=== PATIENT | female | born 1995 | race African-American/Black ===

== ENCOUNTER 2021-09-16 17:34 | Emergency (ER) | payer OTHER ==
[2021-09-16 17:47] VITALS: TEMP 98.6; BMI 22.8
[2021-09-16 20:17] LABS: BASO % 0.3 % (0-2.0); EOS % 0.6 % (0-4.5); HEMATOCRIT 33.4 % (32.4-45.2); HEMOGLOBIN 11.4 GM/dL (10.7-15.3); LYMPH % 30.8 % (8-40); MCH 30.6 pg (25.7-33.7); MCHC 34.1 g/dl (32.0-36.0); MEAN CELL VOLUME 89.9 fl (80-96); MEAN PLT VOLUME 8.5 fl (7.5-11.1); MONO % 6.5 % (3.8-10.2); NEUT % 61.8 % (42.8-82.8); PLATELET COUNT 239 10^3/uL (134-434); RBC 3.71 M/mm3 (3.60-5.2); RDW 13.5 % (11.6-15.6); WHITE BLOOD COUNT 10.2 K/mm3 (4.0-10.0)
[2021-09-16 20:21] LABS: INR 1.34 (0.83-1.09); PROTHROMBIN TIME (PATIENT) 15.5 SEC (9.7-13.0)
[2021-09-16 20:24] LABS: ACTIVATED PTT 31.1 SECONDS (25.2-36.5)
[2021-09-16 22:03] LABS: EPI CELLS 24 /uL (0-25.1); HYALINE CASTS 2 /uL (0-3.1); URINE APPEARANCE CLEAR; URINE BACTERIA 340 /uL (0-1359); URINE BILIRUBIN NEGATIVE (NEGATIVE); URINE COLOR YELLOW; URINE GLUCOSE (UA) NEGATIVE (NEGATIVE); URINE KETONE 4+ (NEGATIVE); URINE LEUK ESTERASE NEGATIVE (NEGATIVE); URINE NITRITE NEGATIVE (NEGATIVE); URINE PROTEIN TRACE (NEGATIVE); URINE RBC 70 /uL (0-23.9); URINE WBC 24 /uL (0-25.8)
[2021-09-16 23:16] VITALS: BP 109/70; PULSE 85
== END 2021-09-16 23:16 | disposition home or self-care (01) ==
LOC: JER 17:34
DX: N30.00 Acute cystitis without hematuria (principal)
CPT/HCPCS: 36415; 76817-TC; 81003; 84702; 85025; 85610; 85730; 86850; 86900; 86901; 99284-25

== ENCOUNTER 2022-04-08 06:10 | Inpatient (IN) | payer OTHER ==
[2022-04-08] MEDS ORDERED: CITRIC ACID/SODIUM CITRATE 30 ML UNIT-DOSE CUP PO ONE (06:30)
[2022-04-08] MEDS ORDERED: ELECTROLYTE-148 SOLN 500 ML IV ONE (06:30)
[2022-04-08] MEDS ORDERED: ELECTROLYTE-148 SOLN 500 ML IV SCH ×2 (06:30→07:00)
[2022-04-08 07:24] VITALS: BMI 30.3
[2022-04-08] MEDS ORDERED: morphine SULFATE/PF 1 MG/2 ML (2cc Syringe - QUVA) ONE (07:29)
[2022-04-08] MEDS ORDERED: FENTANYL CITRATE/PF 50 MCG/ML VIAL ONE (07:29)
[2022-04-08] MEDS ORDERED: ePHEDrine SULFATE 50 MG/1 ML AMPULE ONE (07:29)
[2022-04-08] MEDS ORDERED: PROPOFOL 20 ML ONE (07:59)
[2022-04-08] MEDS ORDERED: OXYTOCIN 20 UNITS in 0.9% NS 20 UNIT/1,000 ML INFUS.BAG IV ONE (08:36)
[2022-04-08] MEDS ORDERED: LIDOCAINE HCL/PF 2% SDV 5ML VIAL ONE (09:09)
[2022-04-08 09:25] LABS: CORD BASE EXCESS -0.7 mmol/L (0-2); CORD HCO3 26.7 mmHg (20-29); CORD PCO2 55.3 mmHg (30-78); CORD pH 7.302 (7.14-7.44)
[2022-04-08 09:28] LABS: CORD HCO3 27.2 mmHg (20-29); CORD PCO2 67.1 mmHg (30-78); CORD pH 7.226 (7.14-7.44)
[2022-04-08] MEDS ORDERED: METHYLERGONOVINE MALEATE 0.2 MG/1 ML AMP IM PRN (09:35)
[2022-04-08] MEDS ORDERED: OXYTOCIN 20 UNITS in 0.9% NS 20 UNIT/1,000 ML INFUS.BAG IV SCH (09:45)
[2022-04-08] MEDS ORDERED: IBUPROFEN 800 MG/8 ML IJ IVPB ONE (10:42)
[2022-04-08] MEDS: IBUPROFEN 800 MG/8 ML IJ IVPB PRN ×2 (10:48→21:04)
[2022-04-08 12:23] LABS: PHENCYCLIDINE,URINE NEGATIVE (NEGATIVE); URINE BARBITURATES NEGATIVE (NEGATIVE)
[2022-04-08 12:25] LABS: COCAINE, UR NEGATIVE (NEGATIVE); METHADONE, UR NEGATIVE (NEGATIVE); URINE BENZODIAZEPINES NEGATIVE (NEGATIVE)
[2022-04-08 12:27] LABS: URINE AMPHETAMINES NEGATIVE (NEGATIVE)
[2022-04-08 12:29] LABS: OPIATES, URI POSITIVE (NEGATIVE)
[2022-04-08] MEDS: CEFAZOLIN 1 GM in DEXTROSE 5%-WATER - 50 ML IVPB SCH ×2 (15:23→20:22)
[2022-04-08] MEDS: ACETAMINOPHEN 325 MG TABLET (FP) PO PRN (15:25)
[2022-04-08] MEDS ORDERED: oxyCODONE HCL 5 MG TABLET PO PRN (21:35)
[2022-04-09] MEDS: IBUPROFEN 800 MG/8 ML IJ IVPB PRN (03:30)
[2022-04-09 08:14] LABS: BASO % 0.3 % (0-2.0); EOS % 0.8 % (0-4.5); HEMATOCRIT 31.8 % (32.4-45.2); HEMOGLOBIN 10.4 GM/dL (10.7-15.3); LYMPH % 14.1 % (8-40); MCH 29.2 pg (25.7-33.7); MCHC 32.6 g/dl (32.0-36.0); MEAN CELL VOLUME 89.7 fl (80-96); MEAN PLT VOLUME 9.2 fl (7.5-11.1); MONO % 6.7 % (3.8-10.2); NEUT % 78.1 % (42.8-82.8); PLATELET COUNT 186 10^3/uL (134-434); RBC 3.55 M/mm3 (3.60-5.2); RDW 14.5 % (11.6-15.6); WHITE BLOOD COUNT 14.5 K/mm3 (4.0-10.0)
[2022-04-09] MEDS: SIMETHICONE 80 MG TAB.CHEW (FP) PO PRN ×2 (09:24→20:26)
[2022-04-09] MEDS: ENOXAPARIN NA (PORCINE) 40 MG/0.4 ML DISP.SYRIN SQ SCH (09:24)
[2022-04-09] MEDS: oxyCODONE HCL 5 MG TABLET PO PRN ×3 (09:25→16:36)
[2022-04-09] MEDS ORDERED: BISACODYL 10 MG SUPP.RECT RC PRN (09:35)
[2022-04-09] MEDS ORDERED: FLU VACC QS2022-23(6MOS UP)/PF 60 MCG/0.5 ML SYRINGE IM ONE (10:00)
[2022-04-09] MEDS ORDERED: DIPHTH,PERTUSS(ACELL),TET 0.5 ML DISP.SYRIN IM ONE (10:00)
[2022-04-09] MEDS: ACETAMINOPHEN 325 MG TABLET (FP) PO PRN ×2 (12:37→16:36)
[2022-04-09] MEDS: IBUPROFEN 600 MG TABLET (FP) PO PRN (20:26)
[2022-04-10] MEDS: SIMETHICONE 80 MG TAB.CHEW (FP) PO PRN ×4 (02:08→20:06)
[2022-04-10] MEDS: IBUPROFEN 600 MG TABLET (FP) PO PRN ×3 (02:08→20:06)
[2022-04-10] MEDS: oxyCODONE HCL 5 MG TABLET PO PRN ×2 (08:30→14:19)
[2022-04-10] MEDS: ENOXAPARIN NA (PORCINE) 40 MG/0.4 ML DISP.SYRIN SQ SCH (09:53)
[2022-04-10] MEDS: ACETAMINOPHEN 325 MG TABLET (FP) PO PRN ×2 (17:08→23:30)
[2022-04-11] MEDS: IBUPROFEN 600 MG TABLET (FP) PO PRN ×2 (02:45→07:12)
[2022-04-11] MEDS: SIMETHICONE 80 MG TAB.CHEW (FP) PO PRN ×2 (02:46→07:12)
[2022-04-11] MEDS: ENOXAPARIN NA (PORCINE) 40 MG/0.4 ML DISP.SYRIN SQ SCH (09:10)
[2022-04-11 09:11] LABS: BASO % 0.5 % (0-2.0); EOS % 2.5 % (0-4.5); HEMATOCRIT 36.4 % (32.4-45.2); HEMOGLOBIN 11.8 GM/dL (10.7-15.3); LYMPH % 21.3 % (8-40); MCH 29.2 pg (25.7-33.7); MCHC 32.4 g/dl (32.0-36.0); MEAN CELL VOLUME 90.1 fl (80-96); MEAN PLT VOLUME 8.9 fl (7.5-11.1); MONO % 6.5 % (3.8-10.2); NEUT % 69.2 % (42.8-82.8); PLATELET COUNT 261 10^3/uL (134-434); RBC 4.03 M/mm3 (3.60-5.2); RDW 15.1 % (11.6-15.6); WHITE BLOOD COUNT 10.3 K/mm3 (4.0-10.0)
[2022-04-11 10:21] VITALS: BP 120/80; PULSE 90; RESP 18; TEMP 98.2
== END 2022-04-11 12:25 | disposition home or self-care (01) | DRG 540 ==
LOC: JLDR 06:10 → J3W 11:55
PROVIDERS: ADMIT Obstetrics & Gynecology; ATTEND Obstetrics & Gynecology
PROC: 10D00Z1 Extraction of Products of Conception, Low, Open Approach (ICD-10-PCS; principal; 2022-04-08)
DX: O34.211 Maternal care for low transverse scar from previous cesarean delivery (principal); Z87.59 Personal history of other complications of pregnancy, childbirth and the puerperium; Z3A.38 38 weeks gestation of pregnancy; Z37.0 Single live birth
CPT/HCPCS: 36415; 36600; 80048; 80307; 82803; 85025; 85610; 85730; 86780; 86850; 86900; 86901; 88307-TC; 90715; C9803-CS; G0008; Q2036; U0003; U0005

== ENCOUNTER 2022-08-10 15:21 | Emergency (ER) | payer OTHER ==
[2022-08-10 15:34] VITALS: BP 120/65; PULSE 95; RESP 18; TEMP 98.2; BMI 26.5
[2022-08-10] MEDS ORDERED: IBUPROFEN 600 MG TABLET (FP) PO ONE ×2 (15:45→15:48)
[2022-08-10] MEDS ORDERED: LIDOCAINE 5% TOPICAL PATCH TP ONE (16:43)
[2022-08-10] MEDS ORDERED: LIDOCAINE 5% TOPICAL PATCH ONE (16:44)
[2022-08-10] MEDS ORDERED: LIDOCAINE PATCH REMOVAL MC SCH (22:00)
== END 2022-08-10 17:24 | disposition home or self-care (01) ==
LOC: JERFT 15:21 → JER 15:21 → JERFT 17:24
DX: S13.4XXA Sprain of ligaments of cervical spine, initial encounter (principal); G44.209 Tension-type headache, unspecified, not intractable; M54.9 Dorsalgia, unspecified; R00.2 Palpitations; V49.40XA Driver injured in collision with unspecified motor vehicles in traffic accident, initial encounter; Y93.I9 Activity, other involving external motion
CPT/HCPCS: 72070-TC-FY; 72100-TC-FY; 99283-25